=== PATIENT | male | born 1950 | race African-American/Black ===

== ENCOUNTER 2016-11-03 05:14 | Inpatient (IN) | payer MEDICARE, MEDICAID ==
[~2016-11-03] VITALS: Ht 193 cm; Wt 77.1 kg
[~2016-11-03 05:14] MED LIST: ALLO300T2 PO; AMLO10TA80 PO; CLON0.1T PO; DOCU100C21 PO; FURO20TA4 PO; HYDR-3927 PO; LORA10TA64 PO; MELO-104 PO; OMEP20CA10 PO; PANT40VI6 IV; POTA20TA82 PO; WARF4TAB39 PO
[2016-11-03] MEDS ORDERED: PANTOPRAZOLE SODIUM 40 MG/VIAL IV STA (06:35)
[2016-11-03] MEDS ORDERED: PANTOPRAZOLE 80 MG in SODIUM CHLORIDE 0.9% 100 ML IV STA (06:35)
[2016-11-03] MEDS ORDERED: SODIUM CHLORIDE 0.9% 1,000 ML IV ONE (06:35)
[2016-11-03] MEDS ORDERED: ONDANSETRON HCL 4MG/2ML VIAL IV STA (06:35)
[2016-11-03 07:24] LABS: BASOPHILS % 0.3 % (0.0-2.0); EOSINOPHILS % 0.1 % (0.0-5.0); HEMATOCRIT. 24.3 % (42.0-52.0); HEMOGLOBIN. 7.8 g/dL (14.0-18.0); LYMPHOCYTES % 10.1 % (20.0-50.0); MEAN CORPUSCULAR HEMOGLOBIN 29.2 pg (28.0-32.0); MEAN CORPUSCULAR VOLUME 91.1 fL (80.0-94.0); MEAN PLATELET VOLUME 8.8 fl (7.4-10.4); MONOCYTES % 3.5 % (2.0-8.0); PLATELET 402 x1000/uL (130-400); RED BLOOD CELL COUNT 2.66 mill/uL (4.7-6.1)
[2016-11-03 07:29] LABS: INR 1.1; PARTIAL THROMBOPLASTIN TIME 26.4 sec (23.4-31.0); PROTHROMBIN TIME 11.6 sec (9.4-11.6)
[2016-11-03 07:35] LABS: BG BASE EXCESS 3.4 mmol/L (-2.0-2.0); BG CARBOXYHEMOGLOBIN 0.6 % (0.5-1.5); BG DEOXYHEMOGLOBIN 5.2 % (0.0-5.0); BG FRACTION INSPIRED OXYGEN 28; BG METHEMOGLOBIN 0.2 % (0.0-1.5); BG OXYGEN SATURATION 94.8 % (92.0-98.5); BG PCO2 42.8 mmHg (35.0-45.0); BG PH 7.433 (7.350-7.450); BG PO2 76.4 mmHg (75.0-100.0); BG SAMPLE SITE RIGHT RADIAL; BG TOTAL HEMOGLOBIN 8.3 g/dL (12.0-18.0); BG VENT MODE NASAL CANNULA
[2016-11-03 07:35] LABS: CARBON DIOXIDE 28 mEq/L (21-32); CHLORIDE 97 mEq/L (98-107)
[2016-11-03 07:38] LABS: TROPONIN I < 0.02 ng/mL (0.00-0.04)
[2016-11-03] MEDS ORDERED: ONDANSETRON HCL 4MG/2ML VIAL IV ONE (09:15)
[2016-11-03] MEDS ORDERED: MORPHINE SULFATE 4 MG/ML CPJ (NOT FOR IM USE) IV ONE (09:30)
[2016-11-03] MEDS ORDERED: CLONIDINE 0.1MG TABLET PO PRN (10:30)
[2016-11-03] MEDS ORDERED: IPRATROPIUM/ALBUTEROL 0.5-3(2.5)MG/3ML NEB INH PRN (10:30)
[2016-11-03] MEDS ORDERED: NA PHOS,M-B/NA PHOS,DI-BA ENEMA 118ML PR PRN (10:30)
[2016-11-03] MEDS ORDERED: ACETAMINOPHEN 650MG/20.3ML UDC GT PRN (10:30)
[2016-11-03] MEDS ORDERED: MAGNESIUM/ALUMINUM HYDROXIDE/SIMETHICONE 30ML UDC PO PRN (10:30)
[2016-11-03] MEDS ORDERED: DIPHENHYDRAMINE 50MG/ML VIAL IV PRN (10:30)
[2016-11-03 11:14] LABS: FOLIC ACID (FOLATE) SERUM 13.3 ng/mL (>5.38)
[2016-11-03] MEDS: ONDANSETRON HCL 4MG/2ML VIAL IV PRN ×2 (13:34→20:15)
[2016-11-03] MEDS: LORAZEPAM 2MG/ML CPJ IV PRN (13:34)
[2016-11-03 15:00] VITALS: BP 125/58
[2016-11-03 15:13] LABS: CREATINE KINASE 25 IU/L (39-308); TROPONIN I < 0.02 ng/mL (0.00-0.04)
[2016-11-03] MEDS ORDERED: HYDROMORPHONE HCL/PF 2MG/ML CPJ IV PRN (16:30)
[2016-11-03] MEDS ORDERED: DILTIAZEM HCL 5MG/ML 5ML VIAL IV PRN (17:00)
[2016-11-03] MEDS ORDERED: PANTOPRAZOLE 80 MG in SODIUM CHLORIDE 0.9% 100 ML IV SCH (18:00)
[2016-11-03] MEDS: DILTIAZEM HCL 60MG TABLET PO SCH ×2 (18:45→21:16)
[2016-11-03] MEDS: DEXT 5%/0.45% NACL 1000ML 1,000 ML IV SCH (18:46)
[2016-11-03 20:00] VITALS: BP 120/59
[2016-11-03] MEDS: PANTOPRAZOLE 80 MG in SODIUM CHLORIDE 0.9% 100 ML IV SCH (20:37)
[2016-11-03 22:37] LABS: HEMATOCRIT 23.8 % (42.0-52.0); HEMOGLOBIN 8.1 g/dL (14.0-18.0)
[2016-11-03 23:09] LABS: CREATINE KINASE 20 IU/L (39-308); CREATINE KINASE MB FRACTION 0.9 ng/mL (0.5-3.6); TROPONIN I < 0.02 ng/mL (0.00-0.04)
[2016-11-03] MEDS: HYDROMORPHONE HCL/PF 2MG/ML CPJ IV PRN (23:37)
[2016-11-03 23:45] VITALS: BP 118/60
[2016-11-04] MEDS: HYDROMORPHONE HCL/PF 2MG/ML CPJ IV PRN ×4 (03:39→19:46)
[2016-11-04] MEDS: DEXT 5%/0.45% NACL 1000ML 1,000 ML IV SCH ×2 (03:46→14:27)
[2016-11-04 03:58] VITALS: BP 113/55
[2016-11-04] MEDS: DILTIAZEM HCL 60MG TABLET PO SCH ×3 (05:34→20:53)
[2016-11-04] MEDS: PANTOPRAZOLE 80 MG in SODIUM CHLORIDE 0.9% 100 ML IV SCH ×2 (06:03→17:38)
[2016-11-04 07:53] LABS: CARBON DIOXIDE 29 mEq/L (21-32); CHLORIDE 106 mEq/L (98-107)
[2016-11-04 08:00] VITALS: BP 125/60
[2016-11-04 08:29] LABS: BASOPHILS % 0.4 % (0.0-2.0); EOSINOPHILS % 0.2 % (0.0-5.0); HEMATOCRIT. 21.2 % (42.0-52.0); HEMOGLOBIN. 7.2 g/dL (14.0-18.0); LYMPHOCYTES % 19.7 % (20.0-50.0); MEAN CORPUSCULAR HEMOGLOBIN 29.9 pg (28.0-32.0); MEAN PLATELET VOLUME 8.8 fl (7.4-10.4); MONOCYTES % 7.4 % (2.0-8.0); NEUTROPHILS % 72.3 % (40.0-76.0); PLATELET 233 x1000/uL (130-400); RED BLOOD CELL COUNT 2.41 mill/uL (4.7-6.1); RED CELL DISTRIBUTION WIDTH 15.4 % (11.6-14.6)
[2016-11-04] MEDS ORDERED: PANTOPRAZOLE SODIUM 40 MG/VIAL IV SCH (09:00)
[2016-11-04] MEDS: ONDANSETRON HCL 4MG/2ML VIAL IV PRN (10:01)
[2016-11-04 12:00] VITALS: BP 126/45
[2016-11-04 16:00] VITALS: BP 119/68
[2016-11-04] MEDS ORDERED: KCL 20MEQ/100ML PREMIX 100 ML IV NR (18:30)
[2016-11-04] MEDS: LORAZEPAM 2MG/ML CPJ IV PRN (19:59)
[2016-11-04 20:00] VITALS: BP 117/51
[2016-11-05] VITALS (18 sets, daily range): BP systolic 105–122; BP diastolic 47–58
[2016-11-05] MEDS: HYDROMORPHONE HCL/PF 2MG/ML CPJ IV PRN ×5 (00:06→22:34)
[2016-11-05] MEDS: DILTIAZEM HCL 60MG TABLET PO SCH (06:00)
[2016-11-05] MEDS: PANTOPRAZOLE 80 MG in SODIUM CHLORIDE 0.9% 100 ML IV SCH ×2 (06:19→14:21)
[2016-11-05] MEDS: DEXT 5%/0.45% NACL 1000ML 1,000 ML IV SCH (06:19)
[2016-11-05 07:15] LABS: CARBON DIOXIDE 29 mEq/L (21-32); CHLORIDE 107 mEq/L (98-107)
[2016-11-05 07:44] LABS: BASOPHILS % 0.7 % (0.0-2.0); EOSINOPHILS % 0.3 % (0.0-5.0); LYMPHOCYTES % 23.6 % (20.0-50.0); MEAN CORPUSCULAR HEMOGLOBIN 31.2 pg (28.0-32.0); MONOCYTES % 8.1 % (2.0-8.0); NEUTROPHILS % 67.3 % (40.0-76.0); PLATELET 197 x1000/uL (130-400); RED BLOOD CELL COUNT 1.46 mill/uL (4.7-6.1); RED CELL DISTRIBUTION WIDTH 15.5 % (11.6-14.6)
[2016-11-05 08:13] LABS: HEMATOCRIT. 13.3 % (42.0-52.0); HEMOGLOBIN. 4.6 g/dL (14.0-18.0)
[2016-11-05] MEDS: ONDANSETRON HCL 4MG/2ML VIAL IV PRN (09:44)
[2016-11-05] MEDS: DILTIAZEM HCL 30MG TABLET PO SCH ×3 (14:00→22:35)
[2016-11-05] MEDS ORDERED: MAGNESIUM 2 G PREMIX 50 ML IV NR (15:30)
[2016-11-05 20:36] LABS: HEMATOCRIT 17.9 % (42.0-52.0); HEMOGLOBIN 6.1 g/dL (14.0-18.0)
[2016-11-06] VITALS (13 sets, daily range): BP systolic 109–181; BP diastolic 46–71
[2016-11-06] MEDS: HYDROMORPHONE HCL/PF 2MG/ML CPJ IV PRN ×5 (02:29→20:08)
[2016-11-06] MEDS: PANTOPRAZOLE 80 MG in SODIUM CHLORIDE 0.9% 100 ML IV SCH ×2 (04:20→13:52)
[2016-11-06] MEDS: DILTIAZEM HCL 30MG TABLET PO SCH ×2 (06:00→13:52)
[2016-11-06 16:00] LABS: HEMATOCRIT 21.9 % (42.0-52.0); HEMOGLOBIN 7.6 g/dL (14.0-18.0)
[2016-11-06 16:01] LABS: BASOPHILS % 0.3 % (0.0-2.0); EOSINOPHILS % 0.6 % (0.0-5.0); HEMOGLOBIN. 7.6 g/dL (14.0-18.0); LYMPHOCYTES % 16.9 % (20.0-50.0); MEAN CORPUSCULAR HEMOGLOBIN 30.1 pg (28.0-32.0); MEAN CORPUSCULAR VOLUME 87.5 fL (80.0-94.0); MEAN PLATELET VOLUME 7.9 fl (7.4-10.4); MONOCYTES % 6.3 % (2.0-8.0); NEUTROPHILS % 75.9 % (40.0-76.0); PLATELET 219 x1000/uL (130-400); RED BLOOD CELL COUNT 2.52 mill/uL (4.7-6.1); RED CELL DISTRIBUTION WIDTH 15.8 % (11.6-14.6)
[2016-11-06 16:13] LABS: CARBON DIOXIDE 27 mEq/L (21-32); CHLORIDE 110 mEq/L (98-107)
[2016-11-07] VITALS: BP 131/70
[2016-11-07] MEDS: HYDROMORPHONE HCL/PF 2MG/ML CPJ IV PRN ×5 (02:08→20:06)
[2016-11-07] MEDS: PANTOPRAZOLE 80 MG in SODIUM CHLORIDE 0.9% 100 ML IV SCH ×3 (02:53→14:06)
[2016-11-07 04:00] VITALS: BP 130/83
[2016-11-07 06:57] LABS: HEMOGLOBIN 7.7 g/dL (14.0-18.0)
[2016-11-07 08:00] VITALS: BP 122/44
[2016-11-07] MEDS: DILTIAZEM HCL 30MG TABLET PO SCH ×3 (09:05→21:11)
[2016-11-07 12:00] VITALS: BP 132/65
[2016-11-07 16:00] VITALS: BP 118/67
[2016-11-07 20:00] VITALS: BP 143/66
[2016-11-08] VITALS: BP 116/60
[2016-11-08] MEDS: HYDROMORPHONE HCL/PF 2MG/ML CPJ IV PRN ×3 (00:11→09:05)
[2016-11-08 04:00] VITALS: BP 127/59
[2016-11-08] MEDS: PANTOPRAZOLE 80 MG in SODIUM CHLORIDE 0.9% 100 ML IV SCH ×2 (04:42→10:32)
[2016-11-08] MEDS: DILTIAZEM HCL 30MG TABLET PO SCH (06:00)
[2016-11-08 06:16] LABS: HEMATOCRIT 22.2 % (42.0-52.0); HEMOGLOBIN 7.6 g/dL (14.0-18.0)
[2016-11-08 08:00] VITALS: BP 124/83
[2016-11-08 12:00] VITALS: BP 112/59
[2016-11-08 12:28] VITALS: BP 112/59
== END 2016-11-08 13:30 | disposition home or self-care (01) | DRG 377 ==
LOC: ER 05:24 → 5WST 09:06 → EDBEDREQ 09:10 → EDBEDREQTM 09:10 → SUPCPDRO 10:25 → ENRESERV 15:49
PROVIDERS: ADMIT Internal Medicine; ATTEND Internal Medicine
PROC: 30233N1 Transfusion of Nonautologous Red Blood Cells into Peripheral Vein, Percutaneous Approach (ICD-10-PCS; principal; 2016-11-03)
DX: K92.0 Hematemesis (principal); E43 Unspecified severe protein-calorie malnutrition; E87.1 Hypo-osmolality and hyponatremia; D62 Acute posthemorrhagic anemia; I48.0 Paroxysmal atrial fibrillation; E83.42 Hypomagnesemia; E87.6 Hypokalemia; I10 Essential (primary) hypertension; F17.210 Nicotine dependence, cigarettes, uncomplicated; K21.9 Gastro-esophageal reflux disease without esophagitis; Z86.711 Personal history of pulmonary embolism; Z85.818 Personal history of malignant neoplasm of other sites of lip, oral cavity, and pharynx; Z79.899 Other long term (current) drug therapy; Z93.1 Gastrostomy status; Z68.20 Body mass index [BMI] 20.0-20.9, adult
CPT/HCPCS: 36415; 36600; 71010; 80048; 80053; 80061; 82375; 82550; 82553; 82607; 82746; 82805; 83036; 83540; 83550; 83605; 83690; 83735; 84443; 84484; 85014; 85018; 85025; 85610; 85730; 86850; 86900; 86920; 87040; 93005; 93306; 93970; 96361; 96365; 96375; 96376; 99291; C9113; J1170; J2060; J2270; J2405; J3475; J3480; J3490; J7030; J7040; J7050; P9016